=== PATIENT | male | born 1940 | race Caucasian/White ===

== ENCOUNTER 2016-09-04 07:31 | Day surgery (SDC) | payer MEDICARE, BC ==
[~2016-09-04] VITALS: Ht 181.6 cm; Wt 91.8 kg
[2016-09-04] VITALS (13 sets, daily range): BP systolic 117–157; BP diastolic 49–83; PULSE 53–71; TEMP 97.2
[2016-09-04] MEDS ORDERED: COZAAR 50MG50 MG/TAB PO (07:39)
[2016-09-04] MEDS ORDERED: TOPROL XL 25MG25 MG PO (07:40)
[2016-09-04] MEDS ORDERED: MOBIC15 MG PO (07:40)
[2016-09-04] MEDS ORDERED: FLOMAX 0.40.4 MG/CAP PO (07:41)
[2016-09-04] MEDS ORDERED: SINGULAIR 110 MG/TAB PO (07:41)
[2016-09-04] MEDS ORDERED: LIPO FLAVINOID PO (07:42)
[2016-09-04] MEDS ORDERED: PHILLIPS PROBIOTIC PO (07:42)
[2016-09-04 08:38] LABS: HEMOGLOBIN 14.7 g/dl (13.5-18.0); MEAN CELL VOLUME 88 fl (80.0-100.0); MEAN CORPUSCULAR HEMOGLOBIN 31 pg (27.0-31.0); MEAN CORPUSCULAR HGB CONC 35 g/dl (33.0-37.0); MEAN PLATELET VOLUME 11.5 fl (7.4-10.4); PLATELET COUNT 147 K/mm3 (130-400); RED BLOOD COUNT 4.75 M/mm3 (4.20-5.60); REDCELL DISTRIBUTION WIDTH-CV 12.4 % (11.5-14.5); WHITE BLOOD COUNT 4.5 K/mm3 (4.8-10.8)
[2016-09-04 08:43] LABS: INR 1.1 (0.8-3.0); PROTHROMBIN TIME 12.5 SECONDS (9.7-12.8)
[2016-09-04 08:57] LABS: CALCIUM 9.2 mg/dL (8.4-10.2); CREATININE, serum 0.95 mg/dL (0.66-1.25); POTASSIUM 4.3 mmol/L (3.4-5.0)
[2016-09-04] MEDS ORDERED: NITRO-DUR0.4 MG/PAT TD (14:51)
[2016-09-04] MEDS ORDERED: LIPITOR 40MG TA40 MG PO (14:54)
== END 2016-09-04 16:03 | disposition home or self-care (01) ==
LOC: EUO 07:31
PROVIDERS: Internal Medicine Cardiovascular Disease
DX: I25.10 Atherosclerotic heart disease of native coronary artery without angina pectoris (principal); I08.3 Combined rheumatic disorders of mitral, aortic and tricuspid valves; R06.00 Dyspnea, unspecified; R07.89 Other chest pain; R94.39 Abnormal result of other cardiovascular function study; Z82.49 Family history of ischemic heart disease and other diseases of the circulatory system; I10 Essential (primary) hypertension; E78.2 Mixed hyperlipidemia; G47.33 Obstructive sleep apnea (adult) (pediatric); M19.90 Unspecified osteoarthritis, unspecified site; J45.909 Unspecified asthma, uncomplicated; Z79.899 Other long term (current) drug therapy; Z79.82 Long term (current) use of aspirin
CPT/HCPCS: C1760; J2250; J3010; Q9967

== ENCOUNTER 2016-12-24 11:48 | Outpatient (RCR) | payer MEDICARE, BC ==
[~2016-12-24 11:48] MED LIST: COZAAR 50MG50 MG/TAB PO; FLOMAX 0.40.4 MG/CAP PO; LIPITOR 40MG TA40 MG PO; LIPO FLAVINOID PO; MOBIC15 MG PO; NITRO-DUR0.4 MG/PAT TD; PHILLIPS PROBIOTIC PO; SINGULAIR 110 MG/TAB PO; TOPROL XL 25MG25 MG PO
== END 2016-12-25 | disposition home or self-care (01) ==
LOC: COL.PT
DX: Z48.812 Encounter for surgical aftercare following surgery on the circulatory system (principal); Z95.1 Presence of aortocoronary bypass graft; I25.10 Atherosclerotic heart disease of native coronary artery without angina pectoris

== ENCOUNTER 2016-12-31 14:22 | Outpatient (RCR) | payer MEDICARE, BC | END 2017-01-04 14:24 | disposition home or self-care (01) | LOC: COL.PT 14:22 | DX: Z48.812 Encounter for surgical aftercare following surgery on the circulatory system (principal); Z95.1 Presence of aortocoronary bypass graft; I25.10 Atherosclerotic heart disease of native coronary artery without angina pectoris ==

== ENCOUNTER 2017-04-19 16:00 | Inpatient (IN) | payer MEDICARE, BC ==
[~2017-04-19] VITALS: Ht 180.3 cm; Wt 98.8 kg
[2017-04-19 16:15] VITALS: BP 113/41; PULSE 66; TEMP 97.3
[2017-04-19] MEDS ORDERED: ASPIRIN 32325 MG/TAB PO (21:25)
[2017-04-19 21:33] VITALS: BP 130/47; PULSE 70; TEMP 98.8
[2017-04-19] MEDS ORDERED: NORVASC 5MG5 MG/TAB PO (21:33)
[2017-04-19] MEDS ORDERED: ZYRTEC 10MG10 MG PO (21:33)
[2017-04-19] MEDS ORDERED: GLUCOSAMINE MSM1 TAB PO (21:34)
[2017-04-19] MEDS ORDERED: SINGULAIR 110 MG/TAB PO (21:35)
[2017-04-19] MEDS ORDERED: MULTI-VITAMIN W1 TA1 PO (21:36)
[2017-04-19] MEDS ORDERED: ZANTAC 150MG T150 MG PO (21:36)
[2017-04-19] MEDS ORDERED: FLORASTOR250 MG PO (21:37)
[2017-04-19] MEDS ORDERED: NATURAL E400 IU PO (21:39)
[2017-04-19] MEDS ORDERED: FLOMAX 0.40.4 MG/CAP PO (21:39)
[2017-04-20 02:32] VITALS: BP 144/59; PULSE 78; TEMP 99.2
[2017-04-20 05:00] VITALS: BP 124/47; PULSE 77; TEMP 99.4
[2017-04-20 08:44] LABS: HEMATOCRIT 42.7 % (42.0-52.0); HEMOGLOBIN 14.2 g/dl (13.5-18.0); MEAN CELL VOLUME 95 fl (80.0-100.0); MEAN CORPUSCULAR HEMOGLOBIN 32 pg (27.0-31.0); MEAN CORPUSCULAR HGB CONC 33 g/dl (33.0-37.0); MEAN PLATELET VOLUME 11.5 fl (7.4-10.4); PLATELET COUNT 109 K/mm3 (130-400); WHITE BLOOD COUNT 11.5 K/mm3 (4.8-10.8)
[2017-04-20 08:54] LABS: CALCIUM 8.7 mg/dL (8.4-10.2); CREATININE, serum 1.25 mg/dL (0.66-1.25); POTASSIUM 4.2 mmol/L (3.4-5.0)
[2017-04-20 09:39] VITALS: BP 144/54; PULSE 80; TEMP 100.4
[2017-04-20 14:44] VITALS: BP 152/55; PULSE 78; TEMP 97.6
[2017-04-20 17:41] VITALS: BP 165/62; PULSE 81; TEMP 99.1
[2017-04-20 22:00] VITALS: BP 148/66; PULSE 81; TEMP 99.9
[2017-04-21] VITALS (7 sets, daily range): BP systolic 135–151; BP diastolic 52–61; PULSE 73–87; TEMP 97.8–100.2
[2017-04-21] MEDS ORDERED: SENOKOT S 50 MG1 TAB PO (07:29)
[2017-04-22] VITALS (15 sets, daily range): BP systolic 141–194; BP diastolic 56–94; PULSE 71–91; TEMP 97.7–98.4
[2017-04-22 06:39] LABS: ADD PATHOLOGY DIFF REVIEW NO
[2017-04-22 06:47] LABS: HEMOGLOBIN 13.5 g/dl (13.5-18.0); MEAN CELL VOLUME 95 fl (80.0-100.0); MEAN CORPUSCULAR HEMOGLOBIN 32 pg (27.0-31.0); MEAN CORPUSCULAR HGB CONC 34 g/dl (33.0-37.0); PLATELET COUNT 195 K/mm3 (130-400); RED BLOOD COUNT 4.21 M/mm3 (4.20-5.60); WHITE BLOOD COUNT 11.3 K/mm3 (4.8-10.8)
[2017-04-22 07:05] LABS: CALCIUM 8.4 mg/dL (8.4-10.2); POTASSIUM 3.8 mmol/L (3.4-5.0)
[2017-04-22 07:35] LABS: BAND 21 % (0-10); EOSINOPHIL 3 % (0-4); LYMPHOCYTE 6 % (20.0-51.0); METAMYELOCYTE 1 % (0-0); NEUTROPHILS 65 % (42.0-75.2); PLATELET ESTIMATE NORMAL (NORMAL); TOTAL CELLS COUNTED 100
[2017-04-23 05:32] VITALS: BP 160/70; PULSE 77; TEMP 98.2
[2017-04-23 09:21] LABS: ADJUSTED CALCIUM 9.1 mg/dL (8.4-10.2); ALBUMIN 3.2 gm/dL (3.5-5.0); BILIRUBIN,TOTAL 0.9 mg/dL (0.0-1.0); CALCIUM 8.5 mg/dL (8.4-10.2); CREATININE, serum 0.9 mg/dL (0.66-1.25); MAGNESIUM 2.3 mg/dL (1.6-2.3); PHOSPHOROUS 3.3 mg/dL (2.5-4.5); TOTAL PROTEIN 6.5 gm/dL (6.4-8.2)
[2017-04-23 09:28] LABS: PRE ALBUMIN 6.9 mg/dL (17.6-36.0)
[2017-04-23 10:41] VITALS: BP 178/74; PULSE 83; TEMP 98.4
[2017-04-23 12:02] VITALS: BP 170/64
[2017-04-23 14:00] VITALS: BP 149/56; PULSE 73; TEMP 97.7
[2017-04-23 17:30] VITALS: BP 144/56; PULSE 74; TEMP 98
[2017-04-23 22:22] VITALS: BP 136/70; PULSE 85; TEMP 99.8
[2017-04-24 02:33] VITALS: BP 155/59; PULSE 76; TEMP 98.5; TEMP 99.2
[2017-04-24 06:03] VITALS: BP 144/51; PULSE 82; TEMP 99.6
[2017-04-24 06:35] LABS: MEAN CELL VOLUME 93 fl (80.0-100.0); MEAN CORPUSCULAR HGB CONC 34 g/dl (33.0-37.0); MEAN PLATELET VOLUME 11.3 fl (7.4-10.4); PLATELET COUNT 185 K/mm3 (130-400); RED BLOOD COUNT 3.74 M/mm3 (4.20-5.60); WHITE BLOOD COUNT 3.4 K/mm3 (4.8-10.8)
[2017-04-24 06:46] LABS: HEMATOCRIT 34.6 % (42.0-52.0); HEMOGLOBIN 11.7 g/dl (13.5-18.0); MEAN CORPUSCULAR HEMOGLOBIN 31 pg (27.0-31.0)
[2017-04-24 06:59] LABS: ADJUSTED CALCIUM 8.9 mg/dL (8.4-10.2); BILIRUBIN,TOTAL 0.7 mg/dL (0.0-1.0); CALCIUM 8.1 mg/dL (8.4-10.2); CREATININE, serum 0.82 mg/dL (0.66-1.25); MAGNESIUM 2.3 mg/dL (1.6-2.3); PHOSPHOROUS 2.4 mg/dL (2.5-4.5); POTASSIUM 3.6 mmol/L (3.4-5.0)
[2017-04-24 07:15] LABS: C-REACTIVE PROTEIN 19.1 mg/dL (0.0-0.9)
[2017-04-24 08:01] LABS: ADD PATHOLOGY DIFF REVIEW YES; BAND 75 % (0-10); EOSINOPHIL 1 % (0-4); LYMPHOCYTE 9 % (20.0-51.0); METAMYELOCYTE 1 % (0-0); MYELOCYTE 3 % (0-0); NEUTROPHILS 10 % (42.0-75.2); PLATELET ESTIMATE NORMAL (NORMAL); TOTAL CELLS COUNTED 100
[2017-04-24 08:36] LABS: PATHOLOGY DIFF REVIEW OK
[2017-04-24 10:47] VITALS: BP 145/53; PULSE 82; TEMP 99.7
[2017-04-24 13:25] VITALS: BP 160/62; PULSE 77; TEMP 100.1; TEMP 99.2
[2017-04-24 16:49] VITALS: BP 161/69; PULSE 81; TEMP 101.1; TEMP 99.9
[2017-04-24 22:00] VITALS: BP 155/57; PULSE 76; TEMP 98.3
[2017-04-25] VITALS (7 sets, daily range): BP systolic 135–170; BP diastolic 52–62; PULSE 65–74; TEMP 97–98.8
[2017-04-25 06:04] LABS: ADD PATHOLOGY DIFF REVIEW NO
[2017-04-25 06:05] LABS: MEAN CELL VOLUME 93 fl (80.0-100.0); MEAN CORPUSCULAR HGB CONC 34 g/dl (33.0-37.0); MEAN PLATELET VOLUME 11.2 fl (7.4-10.4); PLATELET COUNT 189 K/mm3 (130-400); RED BLOOD COUNT 3.78 M/mm3 (4.20-5.60); WHITE BLOOD COUNT 4.8 K/mm3 (4.8-10.8)
[2017-04-25 06:26] LABS: HEMATOCRIT 35.2 % (42.0-52.0); HEMOGLOBIN 11.9 g/dl (13.5-18.0); MEAN CORPUSCULAR HEMOGLOBIN 31 pg (27.0-31.0)
[2017-04-25 06:38] LABS: CALCIUM 8.1 mg/dL (8.4-10.2); CREATININE, serum 0.82 mg/dL (0.66-1.25); POTASSIUM 3.6 mmol/L (3.4-5.0)
[2017-04-25 06:39] LABS: BAND 60 % (0-10); EOSINOPHIL 1 % (0-4); LYMPHOCYTE 14 % (20.0-51.0); METAMYELOCYTE 1 % (0-0); MYELOCYTE 3 % (0-0); NEUTROPHILS 18 % (42.0-75.2); NUCLEATED RED BLOOD CELL 1 (0-6); TOTAL CELLS COUNTED 100
[2017-04-25 06:40] LABS: PLATELET ESTIMATE NORMAL (NORMAL)
[2017-04-26 03:25] VITALS: BP 161/54; PULSE 66; TEMP 98.7
[2017-04-26 07:54] LABS: CALCIUM 8.1 mg/dL (8.4-10.2); CREATININE, serum 0.69 mg/dL (0.66-1.25); MAGNESIUM 2.5 mg/dL (1.6-2.3); PHOSPHOROUS 3.1 mg/dL (2.5-4.5); POTASSIUM 3.6 mmol/L (3.4-5.0)
[2017-04-26 09:26] VITALS: BP 147/53; PULSE 65; TEMP 98.1
[2017-04-26 12:47] VITALS: BP 152/63; PULSE 64; TEMP 97.3
[2017-04-26 14:35] VITALS: BP 165/64; PULSE 66; TEMP 97.8
[2017-04-26 17:57] VITALS: BP 165/53; PULSE 65; TEMP 97.6
[2017-04-26 21:39] VITALS: BP 163/64; PULSE 72; TEMP 98
[2017-04-27 01:27] VITALS: BP 163/60; PULSE 69; TEMP 98.5
[2017-04-27 05:26] LABS: CALCIUM 8.2 mg/dL (8.4-10.2); CREATININE, serum 0.65 mg/dL (0.66-1.25); POTASSIUM 3.7 mmol/L (3.4-5.0)
[2017-04-27 05:41] VITALS: BP 166/68; PULSE 70; TEMP 98.3
[2017-04-27 10:00] VITALS: BP 175/60; PULSE 66; TEMP 97.5
[2017-04-27 14:11] VITALS: BP 162/68; PULSE 70; TEMP 98.2
[2017-04-27 18:12] VITALS: BP 175/71; PULSE 68; TEMP 97.8
[2017-04-28 06:00] VITALS: BP 159/82; PULSE 73; TEMP 98.6
[2017-04-28 10:00] VITALS: BP 182/71; PULSE 70; TEMP 97.9
[2017-04-28 14:26] VITALS: BP 181/69; PULSE 73; TEMP 98.4
[2017-04-28 17:41] VITALS: BP 189/76; PULSE 72; TEMP 98.2
[2017-04-28 22:00] VITALS: BP 158/63; PULSE 68; TEMP 97.5
[2017-04-29 02:00] VITALS: BP 159/65; PULSE 66; TEMP 96
[2017-04-29 02:46] LABS: 12 HR URINE TOTAL VOLUME 0.58 L
[2017-04-29 05:05] VITALS: BP 168/62; PULSE 66; TEMP 96.2
[2017-04-29 06:53] LABS: HEMATOCRIT 37.5 % (42.0-52.0); HEMOGLOBIN 12.8 g/dl (13.5-18.0); MEAN CELL VOLUME 92 fl (80.0-100.0); MEAN CORPUSCULAR HEMOGLOBIN 32 pg (27.0-31.0); MEAN CORPUSCULAR HGB CONC 34 g/dl (33.0-37.0); MEAN PLATELET VOLUME 11.7 fl (7.4-10.4); PLATELET COUNT 239 K/mm3 (130-400); RED BLOOD COUNT 4.06 M/mm3 (4.20-5.60); WHITE BLOOD COUNT 11.4 K/mm3 (4.8-10.8)
[2017-04-29 06:56] LABS: ADD PATHOLOGY DIFF REVIEW NO
[2017-04-29 07:13] LABS: ADJUSTED CALCIUM 9.4 mg/dL (8.4-10.2); ALBUMIN 2.9 gm/dL (3.5-5.0); BILIRUBIN,TOTAL 0.6 mg/dL (0.0-1.0); CALCIUM 8.5 mg/dL (8.4-10.2); CREATININE, serum 0.81 mg/dL (0.66-1.25); POTASSIUM 3.9 mmol/L (3.4-5.0); TOTAL PROTEIN 6.1 gm/dL (6.4-8.2)
[2017-04-29 09:21] LABS: BAND 31 % (0-10); EOSINOPHIL 6 % (0-4); LYMPHOCYTE 11 % (20.0-51.0); NEUTROPHILS 45 % (42.0-75.2); TOTAL CELLS COUNTED 100
[2017-04-29 09:22] LABS: PLATELET ESTIMATE NORMAL (NORMAL)
[2017-04-29 09:23] LABS: TOXIC GRANULATION PRESENT
[2017-04-29 10:30] VITALS: BP 158/61; PULSE 68; TEMP 98.4
[2017-04-29 15:16] VITALS: BP 151/61; PULSE 65; TEMP 97.8
[2017-04-29 17:50] VITALS: BP 157/62; PULSE 63; TEMP 97.6
[2017-04-29 21:39] VITALS: BP 154/68; PULSE 68; TEMP 98.5
[2017-04-30] VITALS (7 sets, daily range): BP systolic 145–173; BP diastolic 59–63; PULSE 59–66; TEMP 97.6–98.4
[2017-05-01] VITALS (7 sets, daily range): BP systolic 157–170; BP diastolic 57–65; PULSE 59–65; TEMP 97.4–98.4
[2017-05-01 07:23] LABS: MEAN CORPUSCULAR HGB CONC 31 g/dl (33.0-37.0); MEAN PLATELET VOLUME 13.3 fl (7.4-10.4); PLATELET COUNT 186 K/mm3 (130-400); RED BLOOD COUNT 3.25 M/mm3 (4.20-5.60); WHITE BLOOD COUNT 7.7 K/mm3 (4.8-10.8)
[2017-05-01 07:24] LABS: HEMATOCRIT 35.4 % (42.0-52.0); MEAN CELL VOLUME 109 fl (80.0-100.0); MEAN CORPUSCULAR HEMOGLOBIN 34 pg (27.0-31.0)
[2017-05-01 07:25] LABS: ADD PATHOLOGY DIFF REVIEW NO
[2017-05-01 07:57] LABS: TRIGLYCERIDE 840 mg/dL
[2017-05-01 08:06] LABS: CHOLESTEROL < 50 mg/dL (120-200); PRE ALBUMIN 15.5 mg/dL (17.6-36.0)
[2017-05-01 09:38] LABS: BAND 24 % (0-10); EOSINOPHIL 4 % (0-4); LYMPHOCYTE 15 % (20.0-51.0); METAMYELOCYTE 2 % (0-0); NEUTROPHILS 51 % (42.0-75.2); PLATELET ESTIMATE NORMAL (NORMAL); TOTAL CELLS COUNTED 100
[2017-05-01 10:25] LABS: ADJUSTED CALCIUM 9.2 mg/dL (8.4-10.2); ALBUMIN 2.9 gm/dL (3.5-5.0); BILIRUBIN,TOTAL 0.4 mg/dL (0.0-1.0); CALCIUM 8.3 mg/dL (8.4-10.2); CREATININE, serum 0.69 mg/dL (0.66-1.25); MAGNESIUM 2.1 mg/dL (1.6-2.3); PHOSPHOROUS 3.2 mg/dL (2.5-4.5); POTASSIUM 4.5 mmol/L (3.4-5.0)
[2017-05-02 04:58] VITALS: BP 156/62; PULSE 67; TEMP 98.5
[2017-05-02 09:27] VITALS: BP 156/63; PULSE 70; TEMP 987.2
[2017-05-02 14:45] VITALS: BP 147/60; PULSE 66; TEMP 98.7
[2017-05-02 17:28] VITALS: BP 147/60; PULSE 66; TEMP 98.7
[2017-05-02 20:13] VITALS: BP 164/62; PULSE 66; TEMP 98
[2017-05-03 03:51] VITALS: BP 163/71; PULSE 71; TEMP 97.6
[2017-05-03 08:35] LABS: CALCIUM 8.4 mg/dL (8.4-10.2); CREATININE, serum 0.72 mg/dL (0.66-1.25); PHOSPHOROUS 3.7 mg/dL (2.5-4.5); POTASSIUM 4.4 mmol/L (3.4-5.0)
[2017-05-03 09:42] VITALS: BP 153/63; PULSE 71; TEMP 97.9
[2017-05-03 13:14] VITALS: BP 146/63; PULSE 73; TEMP 98.1
== END 2017-05-03 17:50 | disposition home or self-care (01) | DRG 372 ==
LOC: SURG 16:00
PROVIDERS: Surgery
PROC: 0D9J30Z Drainage of Appendix with Drainage Device, Percutaneous Approach (ICD-10-PCS; principal; 2017-04-22)
DX: K35.3 Acute appendicitis with localized peritonitis (principal); N13.8 Other obstructive and reflux uropathy; K56.7 Ileus, unspecified; B96.20 Unspecified Escherichia coli [E. coli] as the cause of diseases classified elsewhere; B95.4 Other streptococcus as the cause of diseases classified elsewhere; I25.10 Atherosclerotic heart disease of native coronary artery without angina pectoris; Z95.1 Presence of aortocoronary bypass graft; Z85.46 Personal history of malignant neoplasm of prostate; N40.1 Benign prostatic hyperplasia with lower urinary tract symptoms; J45.909 Unspecified asthma, uncomplicated
CPT/HCPCS: A4217; C1751; C1894; G0378; G0379; J0610; J0696; J1644; J1650; J1815; J2250; J2270; J2405; J2543; J3010; J3475; J3480; J7030; J7050; J7131; Q9967

== ENCOUNTER 2017-07-30 05:35 | Day surgery (SDC) | payer MEDICARE, BC ==
[~2017-07-30] VITALS: Ht 182.9 cm; Wt 92.2 kg
[~2017-07-30 05:35] MED LIST changes: +ASPIRIN 32325 MG/TAB PO; +FLORASTOR250 MG PO; +GLUCOSAMINE MSM1 TAB PO; +MULTI-VITAMIN W1 TA1 PO; +NATURAL E400 IU PO; +NORVASC 5MG5 MG/TAB PO; +SENOKOT S 50 MG1 TAB PO; +ZANTAC 150MG T150 MG PO; +ZYRTEC 10MG10 MG PO
[2017-07-30 06:23] VITALS: BP 150/64; PULSE 57; TEMP 98.2
[2017-07-30 08:50] VITALS: BP 132/49; PULSE 74; TEMP 97.5
[2017-07-30 09:05] VITALS: BP 125/48; PULSE 74
[2017-07-30 09:20] VITALS: BP 130/46; PULSE 68
[2017-07-30 09:35] VITALS: BP 120/49; PULSE 73
[2017-07-30 10:05] VITALS: BP 123/47; PULSE 69
== END 2017-07-30 10:35 | disposition home or self-care (01) ==
LOC: SDCO 05:35
DX: K38.8 Other specified diseases of appendix (principal); K38.0 Hyperplasia of appendix; I25.10 Atherosclerotic heart disease of native coronary artery without angina pectoris; Z95.1 Presence of aortocoronary bypass graft; I08.0 Rheumatic disorders of both mitral and aortic valves; I10 Essential (primary) hypertension; N40.1 Benign prostatic hyperplasia with lower urinary tract symptoms; Z95.5 Presence of coronary angioplasty implant and graft; G47.33 Obstructive sleep apnea (adult) (pediatric); E78.5 Hyperlipidemia, unspecified; Z85.46 Personal history of malignant neoplasm of prostate; J45.909 Unspecified asthma, uncomplicated; Z68.27 Body mass index [BMI] 27.0-27.9, adult; Z79.82 Long term (current) use of aspirin; Z88.8 Allergy status to other drugs, medicaments and biological substances
CPT/HCPCS: J2704; J3010; J7120

== ENCOUNTER → 2018-12-05 | Outpatient (CLI) | payer MEDICARE, BC | LOC: COL.VAS 08:58 | DX: Z13.6 Encounter for screening for cardiovascular disorders (principal); M79.661 Pain in right lower leg ==

== ENCOUNTER 2021-04-13 10:30 | Outpatient (RCR) | payer MEDICARE, BC | END 2021-05-10 14:13 | disposition home or self-care (01) | LOC: WSPT 10:30 | DX: M47.817 Spondylosis without myelopathy or radiculopathy, lumbosacral region (principal) ==